=== PATIENT | female | born 1995 | race Hispanic/Latino ===

== ENCOUNTER 2021-07-21 20:48 | Day surgery (SDC) | payer OTHER ==
[2021-07-21] MEDS ORDERED: Butorphanol Tartrate 1 MG/ML VIAL SLOW IVP PRN (21:09)
[2021-07-21] MEDS ORDERED: Ondansetron PF 4 MG/2 ML Vial IVP PRN (21:09)
[2021-07-21] MEDS ORDERED: hydrALAZINE 20 MG/ML VIAL SLOW IVP PRN (21:09)
[2021-07-21] MEDS ORDERED: Promethazine HCl 25 MG/ML VIAL IM PRN (21:09)
[2021-07-21 21:15] VITALS: BMI 38.7
[2021-07-21] MEDS ORDERED: Lactated Ringer's 1,000 ML IV SCH (21:15)
[2021-07-21 22:10] LABS: Bilirubin Neg (Negative); Blood, Urine Negative (Negative); Clarity Clear (Clear); Glucose, Urine (Dipstick) Normal (Negative); Ketone, Urine 5 mg/dL (Negative); Leukocyte 500 (Negative); Nitrite Negative (Negative); Protein, Urine (Dipstick) 30 mg/dl (Neg-Trace); pH, Urine 6.5 (5.0-9.0)
[2021-07-21 22:14] LABS: Mean Corpuscular HGB CONC 31.5 g/dL (32.0-36.0); Mean Corpuscular Hemoglobin 24.3 pg (27.0-33.0); Mean Corpuscular Volume 77.1 fl (81.6-98.3); Mean Platelet Volume 9.6 fl (7.4-10.4); Platelet Count 327 10x3/uL (150-450); RBC Distribution Width 14.5 % (11.5-14.5); Red Blood Cell (RBC) Count 3.71 10x6/uL (3.90-5.03); White Blood Cell (WBC) Count 8.6 10x3/uL (3.5-10.5)
[2021-07-21 22:33] LABS: Bacteria/HPF 4+ HPF (None Seen); Mucous/LPF 2+ LPF (<2+); RBC/HPF 0-3 HPF (0-3)
[2021-07-21 22:47] LABS: D-Dimer Test 1.38 mg/L FEU (0.19-0.50); INR-International Normal Ratio 0.8; PTT 25.1 sec (22.0-33.0); Prothrombin Time 9.4 sec (9.5-12.1)
[2021-07-21 22:48] LABS: D-Dimer Test 1.41 mg/L FEU (0.19-0.50)
[2021-07-22 13:25] LABS: Protein C Activity 123 % (78-152)
[2021-07-22 13:26] LABS: Factor VIII Test 408.3 % ACTIVE (56-157)
[2021-07-23 09:56] LABS: HEX PHOS LA Tube 2 36.3 SEC; Hexagonal Phospholipid Neut 0.7 SEC (0-8.0)
[2021-07-23 13:24] LABS: Cardiolipin IgA Ab 3.5 APL-U/mL (<14 Negative); Cardiolipin IgG Ab 0.7 GPL-U/mL (<10 Negative); Cardiolipin IgM Ab 1.3 MPL-U/mL (<10 Negative); EliA APS New Method **** NEW METHOD ****
== END 2021-07-22 06:25 | disposition home or self-care (01) ==
LOC: CSHLD/OP 20:48
PROVIDERS: ATTEND Obstetrics & Gynecology
DX: O99.891 Other specified diseases and conditions complicating pregnancy (principal); R10.9 Unspecified abdominal pain; O34.211 Maternal care for low transverse scar from previous cesarean delivery; Z3A.36 36 weeks gestation of pregnancy; W17.2XXA Fall into hole, initial encounter; Y92.029 Unspecified place in mobile home as the place of occurrence of the external cause
CPT/HCPCS: 36415; 76819; 81001; 83090; 85027; 85240; 85300; 85303; 85305; 85307; 85379; 85384; 85598; 85610; 85730; 86147; 86850; 86900; 86901; 96360; 96361; 99283

== ENCOUNTER 2021-08-08 08:19 | Outpatient (CLI) | payer OTHER, BC ==
[2021-08-08 19:56] LABS: SARS-CoV-2 PCR by NAA Not Detected (NotDetected)
== END 2021-08-08 08:20 | disposition home or self-care (01) ==
LOC: CSHLAB 08:19
PROVIDERS: ATTEND Obstetrics & Gynecology
DX: Z20.822 Contact with and (suspected) exposure to COVID-19 (principal)
CPT/HCPCS: U0003; U0005

== ENCOUNTER 2021-08-12 10:45 | Inpatient (IN) | payer OTHER, BC ==
[~2021-08-12 10:45] MED LIST: Bicitra 30 ML UDCUP PO PRN; Famotidine/PF 20 mg/2ml Vial SLOW IVP PRN; Lactated Ringer's 1,000 ML IV SCH; Ondansetron PF 4 MG/2 ML Vial IVP PRN; Promethazine HCl 25 MG/ML VIAL IM PRN; ceFAZolin 2 GM/Dextrose 50 ML 2 GM in Premix Bag 1 BAG IVPB SCH; hydrALAZINE 20 MG/ML VIAL SLOW IVP PRN
[2021-08-12 11:22] VITALS: BMI 42.4
[2021-08-12 11:38] LABS: Hemoglobin 10.1 g/dL (12.0-15.5); Mean Corpuscular HGB CONC 31.4 g/dL (32.0-36.0); Mean Corpuscular Hemoglobin 23.3 pg (27.0-33.0); Mean Corpuscular Volume 74.2 fl (81.6-98.3); Mean Platelet Volume 9.3 fl (7.4-10.4); Platelet Count 353 10x3/uL (150-450); RBC Distribution Width 16.2 % (11.5-14.5); Red Blood Cell (RBC) Count 4.34 10x6/uL (3.90-5.03); White Blood Cell (WBC) Count 8.1 10x3/uL (3.5-10.5)
[2021-08-12 12:08] LABS: Hep B Surf Ag Non-Reactive S/CO (NonReactive)
[2021-08-12 12:09] LABS: Syphilis Antibody Nonreactive (Nonreactive); Syphilis Antibody Index 0.05 S/CO (<1.00 Non-Reactive)
[2021-08-12] MEDS ORDERED: Fentanyl 100 MCG/2 ML VIAL ONE (12:11)
[2021-08-12] MEDS ORDERED: Morphine PF 10 MG/10 ML VIAL ONE (12:11)
[2021-08-12 12:31] LABS: HBSAg Index 0.21 S/CO (0-0.99)
[2021-08-12] MEDS ORDERED: Ketorolac Tromethamine 30 MG/ML VIAL ONE (13:01)
[2021-08-12] MEDS ORDERED: Ondansetron PF 4 MG/2 ML Vial ONE (13:01)
[2021-08-12] MEDS ORDERED: Phenylephrine 10 MG/ML VIAL ONE (13:07)
[2021-08-12] MEDS ORDERED: Oxytocin 10 UNITS/ML VIAL ONE (13:07)
[2021-08-12] MEDS ORDERED: Fentanyl 100 MCG/2 ML VIAL SLOW IVP PRN (13:54)
[2021-08-12] MEDS ORDERED: Ondansetron PF 4 MG/2 ML Vial IVP PRN ×2 (13:54→15:39)
[2021-08-12] MEDS ORDERED: Naloxone HCl 0.4 mg/ml Vial IV PRN (13:54)
[2021-08-12] MEDS ORDERED: Meperidine HCl/PF 25 MG/ML VIAL SLOW IVP PRN (13:54)
[2021-08-12] MEDS ORDERED: Promethazine HCl 25 MG SUPP PR PRN (13:54)
[2021-08-12] MEDS ORDERED: Ondansetron HCl/PF 4 MG/2 ML Vial IVP PRN (13:54)
[2021-08-12] MEDS ORDERED: diphenhydrAMINE 50 MG/ML VIAL IVP PRN (13:54)
[2021-08-12] MEDS ORDERED: Hydrocerin (Eucerin) Cream 120 gm Jar TOP PRN (13:54)
[2021-08-12] MEDS ORDERED: Naloxone HCl 0.4 mg/ml Vial IVP PRN ×2 (13:54)
[2021-08-12] MEDS ORDERED: HYDROmorphone 2 MG/ML VIAL SLOW IVP PRN (13:54)
[2021-08-12] MEDS ORDERED: Ketorolac Tromethamine 30 MG/ML VIAL IVP PRN (13:54)
[2021-08-12] MEDS ORDERED: Promethazine HCl 25 MG/ML VIAL IM PRN ×2 (13:54→15:39)
[2021-08-12] MEDS ORDERED: Communication Order-Pharmacy FS SCH (14:00)
[2021-08-12] MEDS ORDERED: Ketorolac Tromethamine 30 MG/ML VIAL IVP SCH (14:00)
[2021-08-12] MEDS ORDERED: NS w/ Oxytocin 30 units 500 ML ONE (15:26)
[2021-08-12] MEDS ORDERED: NS w/ Oxytocin 30 units 500 ML IV SCH (15:39)
[2021-08-12] MEDS ORDERED: hydrALAZINE 20 MG/ML VIAL SLOW IVP PRN (15:39)
[2021-08-12] MEDS ORDERED: Boostrix 0.5 ML (Tdap) VIAL IM ONE (15:39)
[2021-08-12] MEDS ORDERED: Lanolin Ointment 7 GM TUBE TOP PRN (15:39)
[2021-08-12] MEDS ORDERED: diphenhydrAMINE 25 MG CAP PO PRN (15:39)
[2021-08-12] MEDS ORDERED: Acetaminophen 325 MG TAB PO PRN (15:39)
[2021-08-12] MEDS ORDERED: Simethicone Chewable 80 MG TAB PO PRN (15:39)
[2021-08-12] MEDS ORDERED: NS w/ Oxytocin 30 units 500 ML IVPB SCH (16:00)
[2021-08-12] MEDS: Docusate 100 MG CAP PO SCH (21:44)
[2021-08-13 04:37] LABS: Hemoglobin 7.2 g/dL (12.0-15.5); Mean Corpuscular HGB CONC 30.4 g/dL (32.0-36.0); Mean Corpuscular Volume 75.7 fl (81.6-98.3); Mean Platelet Volume 9.5 fl (7.4-10.4); Platelet Count 246 10x3/uL (150-450); RBC Distribution Width 16.4 % (11.5-14.5); Red Blood Cell (RBC) Count 3.13 10x6/uL (3.90-5.03); White Blood Cell (WBC) Count 7.6 10x3/uL (3.5-10.5)
[2021-08-13] MEDS ORDERED: HYDROcodone/Acetaminophen 5/325 mg Tablet PO PRN ×2 (06:00)
[2021-08-13] MEDS ORDERED: Meperidine HCl/PF 25 MG/ML VIAL IM PRN (06:00)
[2021-08-13] MEDS: Prenatal Vitamin 1 TAB PO SCH (08:52)
[2021-08-13] MEDS: Docusate 100 MG CAP PO SCH ×2 (08:52→21:40)
[2021-08-13] MEDS: Ibuprofen 800 MG TAB PO SCH ×2 (13:08→21:40)
[2021-08-13 19:50] LABS: Hemoglobin 7.1 g/dL (12.0-15.5); MDiff Complete? YES; Mean Corpuscular Hemoglobin 23.7 pg (27.0-33.0); Mean Corpuscular Volume 76.3 fl (81.6-98.3); Mean Platelet Volume 9.3 fl (7.4-10.4); Platelet Count 293 10x3/uL (150-450); RBC Distribution Width 16.6 % (11.5-14.5); White Blood Cell (WBC) Count 7.7 10x3/uL (3.5-10.5)
[2021-08-13 20:12] LABS: Band 2 % (5-11); Eosinophils 1 % (0-10); Lymphocytes 32 % (21-51); Monocytes 5 % (0-10); Neutrophil 60 % (42-75)
[2021-08-13 20:13] LABS: Anisocytosis SLIGHT = 6-15 cells (100X) (0-5/hpf); Hypochromia SLIGHT = 6-15 cells (100X) (0-5/hpf); Microcytosis SLIGHT = 6-15 cells (100X) (0-5/hpf); Ovalocytes SLIGHT = 2-5 cells (100X) (0-1/hpf)
[2021-08-13 20:14] LABS: Platelet Morphology Comment Appears Adequate
[2021-08-13] MEDS ORDERED: Zolpidem Tartrate 5 MG TAB PO PRN (21:00)
[2021-08-14] MEDS: Ibuprofen 800 MG TAB PO SCH ×2 (05:13→14:43)
[2021-08-14 08:09] VITALS: BP 119/64; TEMP 98.4
[2021-08-14] MEDS: Prenatal Vitamin 1 TAB PO SCH (09:56)
[2021-08-14] MEDS: Docusate 100 MG CAP PO SCH (09:57)
[2021-08-14 14:59] LABS: #Eosinphils 0.1 10x3/uL (0.0-0.5); #Monocytes 0.5 10x3/uL (0.0-1.1); #Neutrophils 5.6 10x3/uL (1.5-8.4); %Basophils 0.2 % (0.0-2.0); %Eosinophils 1.1 % (0.0-6.0); %Lymphocytes 26.8 % (18.0-47.0); %Monocytes 5.4 % (0.0-10.0); %Neutrophils 65.1 % (40.0-75.0); Hemoglobin 7.6 g/dL (12.0-15.5); Mean Corpuscular HGB CONC 31.7 g/dL (32.0-36.0); Mean Corpuscular Hemoglobin 24.1 pg (27.0-33.0); Mean Corpuscular Volume 76.2 fl (81.6-98.3); Platelet Count 315 10x3/uL (150-450); RBC Distribution Width 16.9 % (11.5-14.5); Red Blood Cell (RBC) Count 3.15 10x6/uL (3.90-5.03); White Blood Cell (WBC) Count 8.5 10x3/uL (3.5-10.5)
== END 2021-08-14 15:55 | disposition home or self-care (01) | DRG 788 ==
LOC: CSHLD 10:45 → CSHPP 16:35
PROVIDERS: ADMIT Obstetrics & Gynecology; ATTEND Obstetrics & Gynecology
PROC: 10D00Z1 Extraction of Products of Conception, Low, Open Approach (ICD-10-PCS; principal; 2021-08-12)
DX: O34.211 Maternal care for low transverse scar from previous cesarean delivery (principal); Z37.0 Single live birth; Z3A.39 39 weeks gestation of pregnancy
CPT/HCPCS: 36415; 51702; 85025; 85027; 86780; 86850; 86900; 86901; 87340; 90715; J0690; J1885; J2274; J2370; J2405; J2590; J3010

== ENCOUNTER 2023-05-26 00:55 | Observation (INO) | payer OTHER, SELFPAY ==
[2023-05-26] MEDS ORDERED: Ondansetron PF 4 MG/2 ML Vial ONE ×2 (01:28→13:49)
[2023-05-26] MEDS ORDERED: Morphine 4 MG/ML VIAL ONE (01:28)
[2023-05-26 01:48] LABS: #Basophils 0.1 10x3/uL (0.0-0.2); #Eosinphils 0.1 10x3/uL (0.0-0.5); #Monocytes 0.6 10x3/uL (0.0-1.1); #Neutrophils 6.5 10x3/uL (1.5-8.4); %Basophils 0.6 % (0.0-2.0); %Eosinophils 1.2 % (0.0-6.0); %Lymphocytes 29.7 % (18.0-47.0); %Monocytes 5.6 % (0.0-10.0); %Neutrophils 62.5 % (40.0-75.0); Hematocrit 36.7 % (34.9-44.5); Hemoglobin 11.9 g/dL (12.0-15.5); Mean Corpuscular HGB CONC 32.4 g/dL (32.0-36.0); Mean Corpuscular Hemoglobin 26.2 pg (27.0-33.0); Mean Corpuscular Volume 80.7 fl (81.6-98.3); Mean Platelet Volume 9.4 fl (7.4-10.4); Platelet Count 415 10x3/uL (150-450); RBC Distribution Width 16.6 % (11.5-14.5); Red Blood Cell (RBC) Count 4.55 10x6/uL (3.90-5.03); White Blood Cell (WBC) Count 10.4 10x3/uL (3.5-10.5)
[2023-05-26 02:11] LABS: BHCG - Serum Negative (NEGATIVE); Pregs Control Background? CLEAR/WHITE (CLR/WHITE); Pregs Control Bar Appear? YES (CONTROL BAR)
[2023-05-26 02:12] LABS: ALT (SGPT) 38 U/L (8-55); AST (SGOT) 33 U/L (5-34); Albumin 4.4 g/dL (3.5-5.0); Alkaline Phosphatase 66 U/L (40-110); Anion Gap 15 mmol/L (10-20); BUN (Urea Nitrogen) 9 mg/dL (7.0-18.7); Bilirubin, Total 0.2 mg/dL (0.2-1.2); Calc. Creatinine Clearance 0 mL/min (70-130); Calcium 9.3 mg/dL (7.8-10.44); Carbon Dioxide 23 mmol/L (22-29); Chloride 105 mmol/L (98-107); Estimated GFR 100; Globulin 3.5 g/dL (2.4-3.5); Glucose 116 mg/dL (70-105); Lipase 23 U/L (8-78); Potassium 3.5 mmol/L (3.5-5.1); Protein, Total 7.9 g/dL (6.0-8.3); Sodium 139 mmol/L (136-145)
[2023-05-26 02:51] LABS: Bilirubin Neg (Negative); Blood, Urine 25 (Negative); Glucose, Urine (Dipstick) Normal (Negative); Ketone, Urine Negative (Negative); Leukocyte 500 (Negative); Nitrite Negative (Negative); Protein, Urine (Dipstick) Negative (Neg-Trace); Urobilinogen Normal mg/dL (Less than 2); pH, Urine 6.5 (5.0-9.0)
[2023-05-26 03:09] LABS: Bacteria/HPF 2+ HPF (None Seen); CAUTI Indications for Culture Pelvic or flank pain; Clarity Slightly Cloudy (Clear); Trichomonas/HPF 2+ HPF (None Seen)
[2023-05-26 03:10] LABS: Urine Culture Reflex No No
[2023-05-26] MEDS ORDERED: Piperacillin/Tazobactam 4.5 GM VIAL ONE (03:34)
[2023-05-26 04:05] VITALS: BMI 38.2
[2023-05-26] MEDS ORDERED: Morphine 4 MG/ML VIAL SLOW IVP PRN ×2 (04:31→08:45)
[2023-05-26] MEDS ORDERED: Sodium Chloride 0.9% 1,000 ML IV SCH ×2 (04:45→09:00)
[2023-05-26] MEDS ORDERED: Ondansetron PF 4 MG/2 ML Vial IVP PRN ×2 (04:45→08:45)
[2023-05-26] MEDS ORDERED: Ondansetron ODT 4 MG TAB SL PRN (04:45)
[2023-05-26] MEDS ORDERED: TETANUS, DIPHTHERIA TOX,ADULT (TDVAX) 0.5 ML VIAL IM ONE (08:45)
[2023-05-26] MEDS ORDERED: Ondansetron ODT 4 MG TAB PO PRN (08:45)
[2023-05-26] MEDS: FLU VACC QS2023-24(6MOS UP)/PF 60 MCG/0.5 ML SYRINGE IM ONE ×2 (08:59→09:09)
[2023-05-26] MEDS ORDERED: Ketorolac Tromethamine 30 MG/ML VIAL IVP SCH ×2 (09:00→15:00)
[2023-05-26] MEDS ORDERED: Scopolamine 1 mg/72 hour Patch TD SCH (09:00)
[2023-05-26] MEDS ORDERED: LevoFLOXacin 750 mg/D5W 750 MG in Premix 1 BAG IVPB SCH (09:00)
[2023-05-26] MEDS: Acetaminophen 500 MG TAB PO SCH ×3 (09:27→19:10)
[2023-05-26] MEDS ORDERED: EPINEPHrine 1 MG/ML VIAL ONE (13:24)
[2023-05-26] MEDS ORDERED: PROPOFOL 20 ML ONE (13:26)
[2023-05-26] MEDS ORDERED: Bupivacaine HCl 0.5%/Epinephrine 1:200,000/PF 30 ml Vial ONE (13:26)
[2023-05-26] MEDS ORDERED: fentaNYL 50 mcg/mL 1 mL Vial ONE ×2 (13:26→14:42)
[2023-05-26] MEDS ORDERED: Midazolam HCl 2 mg/2 ml Vial ONE (13:26)
[2023-05-26] MEDS ORDERED: Lidocaine 2% PF 5 ML VIAL ONE (13:27)
[2023-05-26] MEDS ORDERED: Dexamethasone 20 MG/5 ML VIAL ONE (13:49)
[2023-05-26] MEDS ORDERED: Ketorolac Tromethamine 30 MG/ML VIAL ONE (13:49)
[2023-05-26] MEDS ORDERED: Rocuronium Bromide 10 MG/ML (10ML VIAL) ONE (13:49)
[2023-05-26] MEDS ORDERED: Glycopyrrolate 0.2 MG/ML 5 ML SYRINGE ONE (14:13)
[2023-05-26] MEDS ORDERED: traMADol HCl 50 MG TAB PO PRN (14:24)
[2023-05-26] MEDS ORDERED: Metoclopramide HCl 10 MG/2 ML VIAL ONE (14:28)
[2023-05-26] MEDS ORDERED: Ibuprofen 200 MG TAB PO PRN (14:30)
[2023-05-26 17:02] VITALS: BP 115/75; TEMP 98
== END 2023-05-26 19:46 | disposition home or self-care (01) ==
LOC: CSHERS 00:55 → INTOOBSV 03:01 → CSHTELE 03:01 → OBSVTOIN 14:28 → INTOOBSV 14:28
PROVIDERS: ADMIT Surgery; ATTEND Surgery
PROC: 0FT44ZZ Resection of Gallbladder, Percutaneous Endoscopic Approach (ICD-10-PCS; principal; 2023-05-26)
DX: K80.12 Calculus of gallbladder with acute and chronic cholecystitis without obstruction (principal); E66.9 Obesity, unspecified; Z79.899 Other long term (current) drug therapy; Z68.38 Body mass index [BMI] 38.0-38.9, adult
CPT/HCPCS: 76705; 80053; 81001; 83690; 84703; 85025; 88304; 96374; 96375; C1889; G0378; J0171; J1100; J1885; J1956; J2001; J2250; J2270; J2405; J2543; J2704; J2765; J3010; J7050; Q0162